=== PATIENT | female | born 1990 | race Caucasian/White ===

== ENCOUNTER 2018-01-07 14:40 | Emergency (ER) | payer OTHER ==
[~2018-01-07] VITALS: Ht 157.5 cm; Wt 90.7 kg
[~2018-01-07 14:40] MED LIST: HYDROXYZINE10 MG PO; PREDNISONE10 MG PO
[2018-01-07 14:57] VITALS: BP 122/83
== END 2018-01-07 15:30 | disposition admitted as inpatient to this hospital (09) ==
LOC: ERH 14:40
DX: E11.9 Type 2 diabetes mellitus without complications (principal)

== ENCOUNTER 2018-02-27 15:52 | Inpatient (IN) | payer OTHER ==
[~2018-02-27] VITALS: Ht 160 cm; Wt 88.6 kg
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
[2018-02-27 19:22] LABS: ABSOLUTE BASOPHIL COUNT 0.1 /CUMM (0.0-0.2); ABSOLUTE EOSINOPHIL COUNT 0.8 /CUMM (0.0-0.7); ABSOLUTE GRANULOCYTE CT 5.3 /CUMM (1.4-6.5); ABSOLUTE LYMPH COUNT 2.3 /CUMM (1.2-3.4); ABSOLUTE MONOCYTE COUNT 0.5 /CUMM (0.10-0.60); BASOPHIL % 0.6 % (0.0-2.0); EOSINOPHIL % 8.5 % (0-5); GRANULOCYTE % 59.2 % (42.2-75.2); HEMATOCRIT 45.4 % (37-47); MEAN CORPUSCULAR HGB 29.3 PG (27.0-31.0); MEAN CORPUSCULAR HGB CONC 33.5 G/DL (33.0-37.0); MEAN CORPUSCULAR VOLUME 87.3 FL (81.0-99.0); MEAN PLATELET VOLUME 9.7 FL (7.4-10.4); PLATELET COUNT 265 /CUMM (130-400); RBC DISTRIBUTION WIDTH 11.5 % (11.5-14.5); WHITE BLOOD CELL COUNT 8.9 /CUMM (4.8-10.8)
[2018-02-27] MEDS ORDERED: BENZTROPINE MESY1 M1 PO (21:31)
[2018-02-27] MEDS ORDERED: CLONAZEPAM1 M2 (21:31)
[2018-02-27] MEDS ORDERED: GABAPENTIN400 M2 PO (21:32)
[2018-02-27] MEDS ORDERED: SEROQUEL100 M1 PO (21:33)
[2018-02-27] MEDS ORDERED: CYMBALTA60 M1 (21:33)
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
[2018-02-28 14:52] VITALS: BP 111/60
[2018-02-28 16:24] VITALS: BP 107/71
[2018-02-28 16:25] VITALS: BP 107/71
[2018-02-28 16:31] VITALS: BP 108/72
[2018-02-28] MEDS ORDERED: METFORMIN HCL500 M3 PO (16:39)
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
[2018-02-28 19:46] VITALS: BP 124/60
[2018-02-28 20:45] VITALS: BP 124/60
[2018-03-01] VITALS (8 sets, daily range): BP systolic 104–134; BP diastolic 55–79
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
--- NOTE | 2018-03-01 15:04 | SOCIAL WORKER PROG NOTE PSYCH ---
Social Work Progress Note Progress Note I Sanya Soniatony met with Armida to complete her social history she was in bed but was cooperative. Her response did not align with the diagnostic assessment from crisis. She mentioned that she has a love for animal and a supportive family. When I met with the patient she was in bed tired and she reported that she did not sleep well last night. She denies feelings of depression and anxiety today, She also initially denied drinking but later in the afternoon admitted that she drank last night. DIscussed her feelings towards her mom but she denies making threat to harm her mother. Currently she does not have negative feelings toward her mom. She seen people discharge from the unit to today and desires to leave as well. I was able to have her sign releases for her mother and therapist Flaquita. I explained that she needs to be more open to discussing emotions and behaviors so that the clinical team can have a successful discharge plan. She challenged that by saying I am talking now and I said yes but you need some time to process what went on prior to admission. I informed her that I would call mom to set up a family meeting and I would let her know when one is scheduled. At first she was resistant to having a family meeting saying patients left today without family meetings I just let her know that this would aid in the discharge process and she agreed. I did reach out to her mother and she is checking with her job operating room coordinator to see if she can come in tomorrow before the psychiatrist leaves for a family meeting. I gave her mom Luz Elena Albarado's number as a call back number to see if tomorrow would work out to have family meeting.
--- NOTE | 2018-03-01 15:31 | SOCIAL WORKER PROG NOTE PSYCH ---
Social Work Progress Note Progress Note A family meeting is scheduled for 1:30 pm. I will met with the patient again tomorrow before the meeting to check in and let her know of the expectations for behavior during the meeting.
--- NOTE | 2018-03-01 19:00 | History & Physical ---
General Information and HPI MD Statement: I have seen and personally examined MOLLY SANCHES and documented this H&P. The patient is a 27 year old F who presented with a patient stated chief complaint of depression with suicidal ideation. Source of Information: patient Exam Limitations: no limitations History of Present Illness: 27-year-old female with past medical history significant for diabetes, depression who is admitted to [facility] with depression with suicidal ideation. Apparently patient had made some statements about suicidal ideation. Patient's family member was not feeling safe therefore she is admitted to [facility]. She does have a history of diabetes and she had high blood sugars this afternoon. She claims that she does take insulin, metformin and another medicine. She currently denies any aches, pains, chest pain, shortness of breath, nausea, vomiting, diarrhea, constipation, abdominal pain, urinary complaints. Allergies/Medications Allergies: Coded Allergies: nut - unspecified (Intermediate, RASH 02/28/18) haloperidol (From HALDOL) (PT STATES RASH AND DIFF BREATH 02/27/18) Home Med list Benztropine Mesylate 1 MG TABLET 1 MG PO DAILY ? (Reported) Clonazepam 1 MG TABLET 1 MG BID anxiety (Reported) Duloxetine HCl (Cymbalta) 60 MG CAPSULE. PT (Reported) Gabapentin 400 MG CAPSULE 2 CAP PO TID mental health (Reported) Hydroxyzine Hydrochloride (Hydroxyzine) 10 MG TAB 1 TAB PO TID PRN ITCHING Metformin HCl 500 MG TABLET 1 TAB PO 7:30 AM, & 4:30 PM DIABETES (Reported) Prednisone 10 MG TABLET 1 TAB PO DAILY DERMATITIS 4 TABS PO DAY 1 3 TABS PO DAY 2 2 TABS PO DAY 3 1 TA PO DAY 4 Quetiapine Fumarate (Seroquel) 100 MG TABLET 1 TAB PO AT BEDTIME mental health (Reported) Past History Travel History Traveled to [facility] past 21 day No Medical History Neurological: NONE EENT: NONE Cardiovascular: NONE Respiratory: NONE Gastrointestinal: NONE Hepatic: NONE Renal: NONE Musculoskeletal: NONE Psychiatric: NONE Endocrine: NONE, diabetes Blood Disorders: NONE Cancer(s): NONE Isolation History: Standard Surgical History Surgical History: non-contributory Past Family/Social History Family History Relations & Conditions if any FATHER Relation not specified for: FHx: diabetes mellitus Employment History Employment Unemployed Profession/Employer She was employed prior no further details Review of Systems Review of Systems Constitutional: Reports: see HPI. EENTM: Reports: see HPI. Cardiovascular: Reports: see HPI. Respiratory: Reports: see HPI. GI: Reports: see HPI. Musculoskeletal: Reports: see HPI. Neurological/Psychological: Reports: see HPI. Exam & Diagnostic Data Last 24 Hrs of Vital Signs/I&O Vital Signs Date Time Temp Pulse Resp B/P B/P Pulse O2 O2 Flow FiO2 Mean Ox Delivery Rate 03/01 1638 71 123/71 03/01 1201 86 129/78 03/01 0817 97.8 64 114/79 03/01 0816 97.8 64 114/79 03/01 0501 96.9 55 114/56 03/01 0006 97.3 58 104/55 02/28 2045 98.0 55 124/60 02/28 1946 98.0 55 124/60 Intake & Output 03/01 1600 03/01 0800 03/01 0000 Intake Total Output Total Balance Patient 195 lb Weight Physical Exam General Appearance Alert, Oriented X3, Cooperative Skin No Rashes HEENT PERRLA Neck Supple Cardiovascular Regular Rate, Normal S1, Normal S2 Lungs Clear to Auscultation Abdomen Normal Bowel Sounds, Soft, No Tenderness Neurological Cranial Nerves II through XII: Intact Last 24 Hrs of Labs/Conner: Laboratory Tests 02/27 1903 Chemistry Sodium (137 - 145 mmol/L) 143 Potassium (3.5 - 5.1 mmol/L) 4.4 Chloride (98 - 107 mmol/L) 104 Carbon Dioxide (22 - 30 mmol/L) 21 L Anion Gap (5 - 16) 18 H BUN (7 - 17 mg/dL) 9 Creatinine (0.5 - 1.0 mg/dL) 0.6 Estimated GFR (>60 ml/min) > 60 BUN/Creatinine Ratio (7 - 25 %) 15.0 Glucose (65 - 99 mg/dL) 123 H Hemoglobin A1c (4.2 - 5.8 %) 8.7 H Calcium (8.4 - 10.2 mg/dL) 10.7 H Total Bilirubin (0.2 - 1.3 mg/dL) 0.7 AST (14 - 36 U/L) 24 ALT (9 - 52 U/L) 41 Alkaline Phosphatase (<127 U/L) 99 Total Protein (6.3 - 8.2 g/dL) 7.9 Albumin (3.5 - 5.0 g/dL) 4.9 Globulin (1.9 - 4.2 gm/dL) 3.0 Albumin/Globulin Ratio (1.1 - 2.2 %) 1.6 Triglycerides (<150 mg/dL) 273 H Cholesterol (<200 MG/DL) 166 LDL Cholesterol, Calc (65 - 129 mg/dL) 78 HDL Cholesterol (40 - 60 mg/dL) 34 L Cholesterol/HDL Ratio (0.00 - 4.23 %) 5 H TSH &T3 &Free T4 Intrp (0.270 - 4.20 uIU/mL) 0.360 Hematology CBC w Diff NO MAN DIFF REQ WBC (4.8 - 10.8 /CUMM) 8.9 RBC (4.20 - 5.40 /CUMM) 5.20 Hgb (12.0 - 16.0 G/DL) 15.2 Hct (37 - 47 %) 45.4 MCV (81.0 - 99.0 FL) 87.3 MCH (27.0 - 31.0 PG) 29.3 MCHC (33.0 - 37.0 G/DL) 33.5 RDW (11.5 - 14.5 %) 11.5 Plt Count (130 - 400 /CUMM) 265 MPV (7.4 - 10.4 FL) 9.7 Gran % (42.2 - 75.2 %) 59.2 Lymphocytes % (20.5 - 51.1 %) 25.9 Monocytes % (1.7 - 9.3 %) 5.8 Eosinophils % (0 - 5 %) 8.5 H Basophils % (0.0 - 2.0 %) 0.6 Absolute Granulocytes (1.4 - 6.5 /CUMM) 5.3 Absolute Lymphocytes (1.2 - 3.4 /CUMM) 2.3 Absolute Monocytes (0.10 - 0.60 /CUMM) 0.5 Absolute Eosinophils (0.0 - 0.7 /CUMM) 0.8 Absolute Basophils (0.0 - 0.2 /CUMM) 0.1 Toxicology Serum Alcohol (<10 MG/DL) 64.0 02/27 1645 Toxicology Urine Opiates Screen (>2000 NG/ML) < 100 Methadone Screen (>300 NG/ML) 56 Barbiturate Screen (>200 NG/ML) < 60 Ur Phencyclidine Scrn (>25 NG/ML) < 6.00 Amphetamines Screen (>1000 NG/ML) < 100 U Benzodiazepines Scrn (>200 NG/ML) < 85 Urine Cocaine Screen (>300 NG/ML) < 50 Urine Cannabis Screen (>50 NG/ML) < 5.00 Urines Urine Color (YEL,AMB,STR) YEL Urine Clarity (CLEAR) CLEAR Urine pH (5.0 - 8.0) 6.0 Ur Specific [place] (1.001 - 1.035) 1.015 Urine Protein (NEG,<30 MG/DL) TRACE H Urine Ketones (NEG) TRACE H Urine Nitrite (NEG) NEG Urine Bilirubin (NEG) NEG Urine Urobilinogen (0.1 - 1.0 EU/dl) 0.2 Ur Leukocyte Esterase (NEG) NEG Ur Microscopic SEDIMENT EXAMINED Urine RBC (0 - 5 /HPF) RARE Urine WBC (0 - 2 /HPF) RARE Ur Epithelial Cells (NONE,FEW) MOD H Urine Bacteria (NEG/NONE) FEW H Urine Hemoglobin (NEG) NEG Urine Glucose (N MG/DL) 100 H Urine Test NEGATIVE Assessment/Plan Assessment: 27-year-old female with past medical history significant for depression and diabetes admitted to [facility] with suicidal ideation and depression. Blood sugars are not controlled. I will continue metformin and add sliding scale insulin. Continue Accu-Cheks. Psych management will be up to psychiatry. Hemoglobin A1c is not controlled. Patient does need diabetic counseling and nutrition consult. As Ranked By This Provider Problem List: 1. 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
[2018-03-02 08:20] VITALS: BP 117/70
[2018-03-02 08:27] VITALS: BP 117/70
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
--- NOTE | 2018-03-02 14:11 | SOCIAL WORKER PROG NOTE PSYCH ---
Social Work Progress Note Progress Note Doctor Mesa, Luz Elena Albarado, and Sanya Lino met with Armida for a phone conference with her mother at 1:30 pm today. The patient was informed by her psychiatrist (doctor Mesa) that she would be released into police custody. Luz Elena Albarado let her know the charges she has which include assaulting an office, threatening an officer and threatening to harm her mother. After care was discussed with Armida and she does not want to stop taking Clonazepam so she is hesitant towards IOP. Armida did express intentions to continue seeing her therapist Flaquita from [facility], a substance abuse counselor and her CYLINDER PRESS FEEDER. Mom said she does not want her home unless she attends IOP for three days a week. Armida then agreed to IOP. The mom expressed concerns about Armida's resistance towards treatment. Armida walked out of the phone conference due to not feeling great. She was disappointed and pissed that she couldn't leave today but rather stay here than be in group home over the weekend. Luz Elena Albarado was later informed after the meeting that Armida is not currently in police custody. I also called Flaquita and left a message for her in regards to taking Armida back upon discharge. I left Luz Elena Albarado's number as a call back number .
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
[2018-03-02 20:09] VITALS: BP 125/76
[2018-03-03 09:23] VITALS: BP 107/59
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
[2018-03-03 19:27] VITALS: BP 106/59
[2018-03-04 09:08] VITALS: BP 96/56
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
[2018-03-05 08:06] VITALS: BP 132/60; BP 90/63
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
--- NOTE | 2018-03-05 13:08 | SOCIAL WORKER PROG NOTE PSYCH ---
Social Work Progress Note Faxed Referral(s) Referred To: [facility] Transition of Care Documents sent: Health Summary [facility] #: [phone] Faxed by: Luz Elena Albarado Date faxed: 03/05/18 Time Faxed: [phone]
--- NOTE | 2018-03-05 15:52 | SOCIAL WORKER PROG NOTE PSYCH ---
Social Work Progress Note Progress Note The services requested require additional review. You will be contacted regarding the status of this request if further information is needed. An authorization decision will be made within the required timeframes and details of that decision may be found under the member's authorization history. Member Name Member ID Member Subscriber Name Subscriber ID MOLLY SANCHES [id number] 1990 MOLLY SANCHES [id number] Pended Authorization # Client Authorization # Type of Request [id number] CONCURRENT Date of Admission/ Start of Services Requested From Submission Date 02/28/2018 03/05/2018 03/05/2018 Level of Service Type of Service Level of Care Type of Care INPATIENT/[facility] Mental Health Inpatient Inpatient Hospital - Inpatient Hospital Reason Code P76
== END 2018-03-05 09:39 | DRG 753 ==
LOC: ERH 15:52 → CP SOUTH 02-28 11:53 → ERHI 02-28 11:53 → CP SOUTH 02-28 16:11
PROVIDERS: Physician Assistant Medical
DX: F31.9 Bipolar disorder, unspecified (principal); F11.90 Opioid use, unspecified, uncomplicated
CPT/HCPCS: 80307; 81001; 81025; 96372; 99291; G0480; J1200; J1630; J1815; J3490

== ENCOUNTER 2018-03-26 21:53 | Inpatient (IN) | payer OTHER ==
[~2018-03-26] VITALS: Ht 157.5 cm; Wt 86.2 kg
[~2018-03-26 21:53] MED LIST changes: +BENZTROPINE MESY1 M1 PO; +CLONAZEPAM1 M2; +CYMBALTA60 M1; +GABAPENTIN400 M2 PO; +METFORMIN HCL500 M3 PO; +SEROQUEL100 M1 PO
[2018-03-26] MEDS ORDERED: LITHIUM CARBON300 M4 PO (23:06)
[2018-03-26 23:08] LABS: ABSOLUTE BASOPHIL COUNT 0 /CUMM (0.0-0.2); ABSOLUTE EOSINOPHIL COUNT 0.1 /CUMM (0.0-0.7); ABSOLUTE GRANULOCYTE CT 4.4 /CUMM (1.4-6.5); ABSOLUTE LYMPH COUNT 1.7 /CUMM (1.2-3.4); ABSOLUTE MONOCYTE COUNT 0.4 /CUMM (0.10-0.60); BASOPHIL % 0.5 % (0.0-2.0); EOSINOPHIL % 1.8 % (0-5); GRANULOCYTE % 66.3 % (42.2-75.2); HEMATOCRIT 41.4 % (37-47); MEAN CORPUSCULAR HGB CONC 33.9 G/DL (33.0-37.0); MEAN CORPUSCULAR VOLUME 85.6 FL (81.0-99.0); PLATELET COUNT 206 /CUMM (130-400); RBC DISTRIBUTION WIDTH 11.7 % (11.5-14.5); RED BLOOD CELL CT 4.84 /CUMM (4.20-5.40); WHITE BLOOD CELL COUNT 6.7 /CUMM (4.8-10.8)
--- NOTE | 2018-03-26 23:41 | ED GENERAL ADULT ---
See Addendum History of Present Illness General Chief Complaint: Psychiatric Related Complaint Stated Complaint: ATTEMPTED HANGING Source: patient Exam Limitations: no limitations Vital Signs & Intake/Output Vital Signs & Intake/Output Vital Signs Date Time Temp Pulse Resp B/P B/P Pulse O2 O2 Flow FiO2 Mean Ox Delivery Rate 03/27 0238 98.0 88 20 128/87 100 Room Air 03/27 0004 98.2 89 20 122/72 99 Room Air 03/26 2157 98.3 102 18 126/68 98 ED Intake and Output 03/27 0000 03/26 1200 Intake Total 0 Output Total Balance 0 Intake, Oral 0 Patient 190 lb Weight Weight Reported by Patient Measurement Method Allergies Coded Allergies: nut - unspecified (Intermediate, RASH 02/28/18) haloperidol (From HALDOL) (PT STATES RASH AND DIFF BREATH 02/27/18) Reconcile Medications Clonazepam 1 MG TABLET 1 MG BID anxiety (Reported) Duloxetine HCl (Cymbalta) 60 MG CAPSULE. PT (Reported) Gabapentin 400 MG CAPSULE 2 CAP PO TID mental health (Reported) [place] Carbonate 300 MG CAPSULE 1 CAP PO BID MENTAL HEALTH (Reported) Metformin HCl 500 MG TABLET 1 TAB PO 7:30 AM, & 4:30 PM DIABETES (Reported) Quetiapine Fumarate (Seroquel) 100 MG TABLET 1 TAB PO AT BEDTIME mental health (Reported) Triage Note: BROUGHT IN BY AMBULANCE ON PEC ATTEMPT TO HAND SELF WITH ROPE. MINOR ABRASIONS TO L WRIST, "THE KNIFE WASN'T DEEP ENOUGH." ON PEC. Triage Nurses Notes Reviewed? 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 Pt attempted to hang herself with a rope. Tied the rope around her neck, but did not attach it to anything. Her mother called 911 in response to the event. Denies HI. Endorses drinking 5 nips today. No drug use. Denies pain. (Negin Powell) Past History Travel History Traveled to [place] past 21 day No Medical History Any Pertinent Medical History? see below for history Neurological: NONE EENT: NONE Cardiovascular: NONE Respiratory: NONE Gastrointestinal: NONE Hepatic: NONE Renal: NONE Musculoskeletal: NONE Psychiatric: NONE Endocrine: NONE, diabetes Blood Disorders: NONE Cancer(s): NONE Isolation History: Standard Surgical History Surgical History: non-contributory Psychosocial History Who do you live with Mother What is your primary language Moroccan Tobacco Use: Refused to answer Family History Family History, If Any: FATHER Relation not specified for: FHx: diabetes mellitus Hx Contributory? No (Negin Powell) Review of Systems Review of Systems Constitutional: Reports: no symptoms. EENTM: Reports: no symptoms. Respiratory: Reports: no symptoms. Cardiovascular: Reports: no symptoms. GI: Reports: no symptoms. Genitourinary: Reports: no symptoms. Musculoskeletal: Reports: no symptoms. Skin: Reports: no symptoms. Neurological/Psychological: Reports: see HPI. Hematologic/Endocrine: Reports: no symptoms. Immunologic/Allergic: Reports: no symptoms. All Other Systems: Reviewed and Negative (Negin Powell) Physical Exam Physical Exam General Appearance: well developed/nourished, no apparent distress, alert, awake Comments: Gen.: Well-nourished, well-developed, no acute distress. Head: Normocephalic, atraumatic. Eyes: Normal inspection bilaterally Ears: Normal inspection bilaterally Nose: Normal inspection Neck: Normal inspection, no ecchymosis or abrasions,no signs of strangulation Lungs: clear to auscultation bilaterally, normnal breath sounds Heart: regular rate and rhythm Abdomen: soft and non-tender Extremities: Normal inspection Neurologic: alert and oriented x3, steady gait Skin: warm and dry Psychiatric: Normal mood and affect, no apparent delusions or hallucinations, behavior appropriate Core Measures ACS in differential dx? No CVA/TIA Diagnosis: No Sepsis Present: No Sepsis Focused Exam Completed? No (Negin Powell) Progress Differential Diagnoses I considered the following diagnoses in my evaluation of the patient: [suicidal ideation vs ETOH intoxication vs strangulation] Plan of Care: Orders Procedure Date/time Status Regular Diet 03/27 B Active FingerStick- Glucose 03/274 Active Add-on Test (ER Only) 03/26 2327 Active LITHIUM 03/26 2300 Complete Continuous Observation Monitor 03/26 2204 Active URINE DRUGS OF ABUSE 03/26 2204 Complete URINE 03/26 2204 Complete ETHANOL 03/26 2204 Complete COMPREHENSIVE METABOLIC PANEL 03/26 2204 Complete CBC WITHOUT DIFFERENTIAL 03/26 2204 Complete ED CRISIS PSYCH CONSULT 03/26 2204 Active Current Medications Sig/Jorge Alberto Start time Last Medication Dose Stop Time Status Admin Duloxetine HCl 60 MG DAILY 03/27 09 UNVr (Cymbalta) Gabapentin 800 MG TID 03/27 900 UNVr (Neurontin) [place] Carbonate 300 MG 0800,03/27 08 UNVr ([place] Carbonate) Metformin HCl 500 MG 0800,1700 03/27 08 UNVr (Glucophage) Insulin Human Regular 4 UNITS ONCE ONE 03/27 010 UNVr 03/27 (NovoLIN R) 03/27 010 0149 Sodium Chloride 1,000 ML BOLUS ONE 03/27 010 UNVr 03/27 (Normal Saline 0.9%) 03/27 015 0241 Sodium Chloride 1,000 ML BOLUS ONE 03/27 010 UNVr 03/27 (Normal Saline 0.9%) 03/27 015 0147 Clonazepam 2 MG ONCE ONE 03/26 2345 UNVr 03/27 (Klonopin 1MG Tab) 03/26 2346 0002 Quetiapine Fumarate 100 MG QPM 03/26 2330 UNVr 03/26 (Seroquel) 2354 Laboratory Tests 03/26/18 2300: Anion Gap 11, Estimated GFR > 60, BUN/Creatinine Ratio 4.3 L, Glucose 413 H, Calcium 9.3, Total Bilirubin 0.9, AST 36, ALT 44, Alkaline Phosphatase 100, Total Protein 6.9, Albumin 4.0, Globulin 2.9, Albumin/Globulin Ratio 1.4, CBC w Diff NO MAN DIFF REQ, RBC 4.84, MCV 85.6, MCH 29.0, MCHC 33.9, RDW 11.7, MPV 9.0 , Gran % 66.3, Lymphocytes % 25.2, Monocytes % 6.2, Eosinophils % 1.8, Basophils % 0.5, Absolute Granulocytes 4.4, Absolute Lymphocytes 1.7, Absolute Monocytes 0.4, Absolute Eosinophils 0.1, Absolute Basophils 0, [place] 0.6, Serum Alcohol 79.0 03/26/184: Urine Opiates Screen < 100, Methadone Screen < 40, Barbiturate Screen < 60, Ur Phencyclidine Scrn < 6.00, Amphetamines Screen < 100, U Benzodiazepines Scrn < 85, Urine Cocaine Screen < 50, Urine Cannabis Screen < 5.00, Urine Test NEGATIVE Labs show serum thanol level 79 and hyperglycemia to 413. Ordered for IV fluids and subq insulin. Will recheck. Pt signed out to overnight attending with crisis eval pending. Initial ED EKG: none (Negin Powell) Departure Departure Disposition: STILL A PATIENT Condition: Stable Clinical Impression Primary Impression: Suicidal ideation Secondary Impressions: Alcohol intoxication, Suicide attempt Referrals: Patient Has No Primary Care Dr (PCP/Family) Departure Forms: Customer Survey General Discharge Information (Negin Powell) PA/POLLS OR SURVEYS INTERVIEWER Co-Sign Statement Statement: ED Attending supervision documentation- [] I saw and evaluated the patient. I have also reviewed all the pertinent lab results and diagnostic results. I agree with the findings and the plan of care as documented in the PA's/POLLS OR SURVEYS INTERVIEWER's documentation. [x] I have reviewed the ED Record and agree with the PA's/POLLS OR SURVEYS INTERVIEWER's documentation. [] Additions or exceptions (if any) to the PAs/POLLS OR SURVEYS INTERVIEWER's note and plan are summarized below: [] (Patrick Gutierrez DO) Critical Care Note Critical Care Note Critical Care Time: non-applicable (Negin Powell)
[2018-03-26 23:42] LABS: LITHIUM 0.6 mmol/L (0.6-1.2)
--- NOTE | 2018-03-27 09:56 | ED PSYCH CRISIS CONSULTATION ---
See Addendum Crisis Consult Basic Assessment Date of Consult: 03/27/18 Responsible Person/Accompanied By: self Insurance Authorization: Insurance #1: Insurance name: JESSY SAMUEL Phone number: Policy number: [id number] Group number: Authorization number: ED Provider: Patient's ED Provider: Negin Powell Primary Care Physician: Patient's PCP: Patient Has No Primary Care Dr PCP's Phone Number: Current Psychiatrist: Viridiana Darling Chief Complaint: Psychiatric Related Complaint Patient's Quote: "Yes" In response to question- where you trying to kill yourself? Present Illness: Pt is a 27 year old female BIBA last night on a PEER after mother called 911 when mother found pt in the garage with a rope around her neck and made suicidal statements to her mother. Crisis spoke to mother, Raymundo Prasad ([phone]) this morning. Mother states this is the first time the patient has done anything this significant- making a noose and putting it around her neck. Mom states that since pt's last discharge, she been depressed and getting worse. Mom states that over the last several days pt has been making suicidal statements such as- "I have a plan"; "I 'll do it"; "I'll tie a rope around my neck in the garage", and "I have the beam picked out". Mom states yesterday, pt stormed out of the house while mom was getting her hair done by a friend. She believes the pt went out drinking as mom states she was acting as though he had some alcohol in her system. Of note, BAL was 79 upon arrival to the ED. Mom states that pt came back home, stated she was tired of struggling and left the house again. Mom states she was nervous and went out after her which is when she found the patient with the rope tied around her neck in the garage. Additionally mom states that pt is supposed to go to an IOP intake tomorrow. Mom states pt has been seeing her therapist and prescriber. Pt has recently started [place] (level is 0.6 in ED). She is also taking Seroquel, Neurontin and Klonopin. Pt believes the Neurontin and Klonopin are the most helpful while mom believes the pt was at her best while she was prescribed Risperdal. Mom states when she was on Risperdal she was functiong well, was more sociable and had a job. Today patient presents as lethargic with a flat affect. She is soft spoken and somewhat guarded. She responsed to yes/no questions but had difficulty responding to open ended yesterdays. Pt does confirm that yesterday was a suicide attempt as she intended to . She continues to want to be today. Pt has a history of HI towards her mother but denies HI today. She denies AH/VH. She reports she drank 5 nips yesterday and that her last use of cocaine was before her last hospitalization (02/2018). UDS was negative in ED. Patient's Address: [address] [place] [address] Other Phone Number: Who Do You Live With? Mother Family/Informants Interviewed: Spoke with mother, Raymundo- see present illness section Allergies - Coded Allergies: nut - unspecified (Intermediate, RASH 02/28/18) haloperidol (From HALDOL) (PT STATES RASH AND DIFF BREATH 02/27/18) Current Medications - Scheduled Medications Clonazepam 1 MG TABLET 1 MG BID anxiety (Reported) Entered as Reported by Vidhi Salmon on 02/27/182130 Last Taken: 03/26/18 Gabapentin 400 MG CAPSULE 2 CAP PO TID mental health (Reported) Entered as Reported by Vidhi Salmon on 02/27/182131 Last Taken: 03/26/18 [place] Carbonate 300 MG CAPSULE 1 CAP PO BID MENTAL HEALTH (Reported) Entered as Reported by Roxana Carlos on 03/26/182305 Metformin HCl 500 MG TABLET 1 TAB PO 7:30 AM, & 4:30 PM DIABETES (Reported) Entered as Reported by Bigg Hatfield on 02/28/18 1639 Last Taken: 03/26/18 Quetiapine Fumarate (Seroquel) 100 MG TABLET 1 TAB PO AT BEDTIME mental health (Reported) Entered as Reported by Vidhi Salmon on 02/27/182132 Last Taken: 03/25/18 Miscellaneous Medications Duloxetine HCl (Cymbalta) 60 MG CAPSULE. PT (Reported) Entered as Reported by Vidhi Salmon on 02/27/182132 Last Taken: 03/26/18 Laboratory Results: Laboratory Tests 03/26/18 2300: Anion Gap 11, Estimated GFR > 60, BUN/Creatinine Ratio 4.3 L, Glucose 413 H, Calcium 9.3, Total Bilirubin 0.9, AST 36, ALT 44, Alkaline Phosphatase 100, Total Protein 6.9, Albumin 4.0, Globulin 2.9, Albumin/Globulin Ratio 1.4, CBC w Diff NO MAN DIFF REQ, RBC 4.84, MCV 85.6, MCH 29.0, MCHC 33.9, RDW 11.7, MPV 9.0 , Gran % 66.3, Lymphocytes % 25.2, Monocytes % 6.2, Eosinophils % 1.8, Basophils % 0.5, Absolute Granulocytes 4.4, Absolute Lymphocytes 1.7, Absolute Monocytes 0.4, Absolute Eosinophils 0.1, Absolute Basophils 0, [place] 0.6, Serum Alcohol 79.0 03/26/184: Urine Opiates Screen < 100, Methadone Screen < 40, Barbiturate Screen < 60, Ur Phencyclidine Scrn < 6.00, Amphetamines Screen < 100, U Benzodiazepines Scrn < 85, Urine Cocaine Screen < 50, Urine Cannabis Screen < 5.00, Urine Test NEGATIVE Past History Past Medical History Neurological: NONE EENT: NONE Cardiovascular: NONE Respiratory: NONE Gastrointestinal: NONE Hepatic: NONE Renal: NONE Musculoskeletal: NONE Psychiatric: alcohol dependence, anxiety, depression Endocrine: diabetes Blood Disorders: NONE Cancer(s): NONE Past Surgical History Surgical History: non-contributory Psychosocial History Strengths/Capabilities: supportive mother complaint with medications Physical Limitations (Interventions): N/A Psychiatric Treatment History Psych Treatment Psychiatric Treatment Yes Inpatient Treatment Yes Outpatient Treatment Yes Location of Treatment [facility]- last IP 02/2018; individual Reason for Treatment anxiety depression Dates of Treatment IP- [facility] (02/21 & ), [facility] OP Response to Treatment pt has been decompensating for 3 weeks (1 week post discharge from [facility]) Diagnosis by History: Unspecified Depressive Disorder F32.9 Moderate Opiod Use Disorder F11.20 Mother reports- Borderline Personality D/O Substance Use/Abuse History Drug Use/Abuse 1 Substances Used/Abused Yes Substance Used/Abused Alcohol Last Used 03/26/18 How much used/taken 5 nips How often "first time in a while" Route of use oral Drug Use/Abuse 2 Substances Used/Abused Yes Substance Used/Abused Cocaine Last Used before last hospitalization which was 02/2018 Substance Abuse Treatment Substance Abuse Treatment Past Substance Abuse [place] No Current Mental Status Mental Status Orientation: Person, Place, Situation Affect: Flat Speech: Soft Neuro-vegetative: Appetite Decreased, Sleep Disturbance Appearance Appearance- Dress/Hygiene: Pt presents in hospital scrubs. She has a tattoo on right foot. Hair is unkempt in a messy pony tail. Hygiene appears adequate. Behaviors Thought Process: Logical/Rational Thought Content: WNL Memory: WNL Insight: Fair SI/HI Risk Assessment Past Suicidal Ideation/Attempts Yes Current Suicidal Ideation/Att Yes Past Homicidal Ideation/Att: Yes Current Homicidal Ideation/Attempts No Degree of Intent: Made Preparations, Plan Danger To: Self Gravely Disabled: Lack of Insight, Poor Impulse Control, Poor Judgment Risk Factors: history of suicide atmpts, SA/MH hospitalized, substance abuse, poor impulse control, limited support Lethality Ratin PTSD Checklist PTSD Done? patient declined ED Management Sitter: Yes Restraints: No DSM5/PS Stressors/Medical Prob Diagnosis' (DSM 5, Stressors, Medical): F33.2 Major Depressive Disorder, Recurrent, Severe R/O Bipolar Disorder F10.20 [place] Use Disorder, Moderate F14.10 Stimulant Use Disorder Current GAF: 18 Departure Disposition Psych Medical Clearance Date: 03/27/18 Medically Cleared at: 0830 Time Started: 0830 Time Ended: 0850 Psychiatrist Consulted: Dr. Merly Guardado Date Disposition Established: 03/27/18 Time Disposition Established: 850 Plan for Disposition - Modality: Inpatient Psychiatry Facility: [facility] Rationale for Disposition: Pt requires acute Referrals Patient Has No Primary Care Dr (PCP/Family)
--- NOTE | 2018-03-27 11:38 | IP CRISIS DIAG ASSESS PSYCH ---
Diagnostic Assessment Basic Assessment Insurance Authorization: Insurance #1: Insurance name: JESSY Romero [place] Phone number: Policy number: [id number] Group number: Authorization number: Pt was authorized for 3 units from 03/27/18-03/29/18. Auth #[id number] Primary Care Physician: Patient's PCP: Patient Has No Primary Care Dr PCP's Phone Number: Patient's Quote: "Yes" In response to question- where you trying to kill yourself? Present Illness: Pt is a 27 year old female BIBA last night on a PEER after mother called 911 when mother found pt in the garage with a rope around her neck and made suicidal statements to her mother. Crisis spoke to mother, Raymundo Prasad ([phone]) this morning. Mother states this is the first time the patient has done anything this significant- making a noose and putting it around her neck. Mom states that since pt's last discharge, she been depressed and getting worse. Mom states that over the last several days pt has been making suicidal statements such as- "I have a plan"; "I 'll do it"; "I'll tie a rope around my neck in the garage", and "I have the beam picked out". Mom states yesterday, pt stormed out of the house while mom was getting her hair done by a friend. She believes the pt went out drinking as mom states she was acting as though he had some alcohol in her system. Of note, BAL was 79 upon arrival to the ED. Mom states that pt came back home, stated she was tired of struggling and left the house again. Mom states she was nervous and went out after her which is when she found the patient with the rope tied around her neck in the garage. Additionally mom states that pt is supposed to go to an IOP intake tomorrow. Mom states pt has been seeing her therapist and prescriber. Pt has recently started [place] (level is 0.6 in ED). She is also taking Seroquel, Neurontin and Klonopin. Pt believes the Neurontin and Klonopin are the most helpful while mom believes the pt was at her best while she was prescribed Risperdal. Mom states when she was on Risperdal she was functiong well, was more sociable and had a job. Today patient presents as lethargic with a flat affect. She is soft spoken and somewhat guarded. She responsed to yes/no questions but had difficulty responding to open ended yesterdays. Pt does confirm that yesterday was a suicide attempt as she intended to . She continues to want to be today. Pt has a history of HI towards her mother but denies HI today. She denies AH/VH. She reports she drank 5 nips yesterday and that her last use of cocaine was before her last hospitalization (02/2018). UDS was negative in ED. Patient's Address: [address] [place] [address] Other Phone Number: Who Do You Live With? Mother Feel Safe Where You Live? Yes Marital Status: single Do You Have Children? No Primary Language? Persian Language(s) Spoken At Home: Persian Family/Informants Interviewed: Spoke with motherRaymundo- see present illness section Allergies - Coded Allergies: nut - unspecified (Intermediate, RASH 02/28/18) haloperidol (From HALDOL) (PT STATES RASH AND DIFF BREATH 02/27/18) Current Medications - Scheduled Medications Clonazepam 1 MG TABLET 1 MG BID anxiety (Reported) Entered as Reported by Vidhi Salmon on 02/27/182130 Last Taken: 03/26/18 Gabapentin 400 MG CAPSULE 2 CAP PO TID mental health (Reported) Entered as Reported by Vidhi Salmon on 02/27/182131 Last Taken: 03/26/18 [place] Carbonate 300 MG CAPSULE 1 CAP PO BID MENTAL HEALTH (Reported) Entered as Reported by Roxana Carlos on 03/26/182305 Metformin HCl 500 MG TABLET 1 TAB PO 7:30 AM, & 4:30 PM DIABETES (Reported) Entered as Reported by Bigg Hatfield on 02/28/18 1639 Last Taken: 03/26/18 Quetiapine Fumarate (Seroquel) 100 MG TABLET 1 TAB PO AT BEDTIME mental health (Reported) Entered as Reported by Vidhi Salmon on 02/27/182132 Last Taken: 03/25/18 Miscellaneous Medications Duloxetine HCl (Cymbalta) 60 MG CAPSULE.DR FLEMING (Reported) Entered as Reported by Vidhi Salmon on 02/27/182132 Last Taken: 03/26/18 Consequences of Psych Med Use: Mom reports patient was most successful on Risperdal- social, happier and had a job Pt was d/c Risperdal- reasons unknown- possibly related to 100 pound weight gain over a period of time. Pt was recently started on [place]. Lab Results: Laboratory Tests 03/26/18 2300: Anion Gap 11, Estimated GFR > 60, BUN/Creatinine Ratio 4.3 L, Glucose 413 H, Calcium 9.3, Total Bilirubin 0.9, AST 36, ALT 44, Alkaline Phosphatase 100, Total Protein 6.9, Albumin 4.0, Globulin 2.9, Albumin/Globulin Ratio 1.4, CBC w Diff NO MAN DIFF REQ, RBC 4.84, MCV 85.6, MCH 29.0, MCHC 33.9, RDW 11.7, MPV 9.0 , Gran % 66.3, Lymphocytes % 25.2, Monocytes % 6.2, Eosinophils % 1.8, Basophils % 0.5, Absolute Granulocytes 4.4, Absolute Lymphocytes 1.7, Absolute Monocytes 0.4, Absolute Eosinophils 0.1, Absolute Basophils 0, [place] 0.6, Serum Alcohol 79.0 03/26/184: Urine Opiates Screen < 100, Methadone Screen < 40, Barbiturate Screen < 60, Ur Phencyclidine Scrn < 6.00, Amphetamines Screen < 100, U Benzodiazepines Scrn < 85, Urine Cocaine Screen < 50, Urine Cannabis Screen < 5.00, Urine Test NEGATIVE Toxicology Screen Completed? Yes Results: negative Symptoms of Use: Pt drinks alcohol (last use yesterday- 5 nips) Pt has a hx of cocaine use- last use prior to previous [facility] in 02/2018. Past History Past Medical History Medical History: Diabetes Past Surgical History Surgical History unobtainable Abuse/Trauma History Trauma History/Current Trauma: Denies Legal History Current Legal Status: family relations court Have you ever been arrested? Yes Number of Arrests: [address] Dates: pt has court on 05/17/18- charges threatening, interferring w/ officer and assult of police office (felony). Psychosocial History Strengths/Capabilities: supportive mother complaint with medications Physical Limitations (Interventions): N/A Psychiatric Treatment History Psych Treatment Psychiatric Treatment Yes Inpatient Treatment Yes Outpatient Treatment Yes Location of Treatment [facility]- last IP 02/2018; individual Reason for Treatment anxiety depression Dates of Treatment IP- [facility] (02[facility]21 [facility] ), [facility], [facility] OP Response to Treatment pt has been decompensating for 3 weeks (1 week post discharge from [facility]) Diagnosis by History: Unspecified Depressive Disorder F32.9 Moderate Opiod Use Disorder F11.20 Mother reports- Borderline Personality D/O Risk Factors: history of suicide atmpts, SA/MH hospitalized, substance abuse, poor impulse control, limited support Substance Use/Abuse History Drug Use/Abuse minimum 12mo Hx 1 Substances Used/Abused Yes Substance Used/Abused Cocaine Last Used before last hospitalization which was 02/2018 How much used/taken 5 nips How often "first time in a while" Route of use oral Drug Use/Abuse minimum 12mo Hx 2 Substances Used/Abused Yes Substance Used/Abused Alcohol Last Used 03/26/18 How much used/taken 5 nips How often "first time in a while" Route of use oral Substance Abuse Treatment Substance Abuse Treatment Past Substance Abuse [place] No Sexual History Sexual Concerns: none Education History Highest Level of Education: high school/GED Current Mental Status Mental Status Orientation: Person, Place, Situation Affect: Flat Speech: Soft Neuro-vegetative: Appetite Decreased, Sleep Disturbance Appearance Appearance- Dress/Hygiene: Pt presents in hospital scrubs. She has a tattoo on right foot. Hair is unkempt in a messy pony tail. Hygiene appears adequate. Behaviors Thought Process: Logical/Rational Thought Content: WNL Memory: WNL Insight: Fair SI/HI Risk Assessment - Minimum 6mo History- Past Suicidal Ideation/Attempts Yes Current Suicidal Ideation/Att Yes Past Homicidal Ideation/Att: Yes Current Homicidal Ideation/Attempts No Degree of Intent: Made Preparations, Plan Danger To: Self Gravely Disabled: Lack of Insight, Poor Impulse Control, Poor Judgment Risk Factors: history of suicide atmpts, SA/MH hospitalized, substance abuse, poor impulse control, limited support Lethality Ratin Needs/Init [place] Plan/Goals: Medication Evaluation Psychiatric Evaluation Comphrensive Psychosocial Evaluation Individual Therapy Group Therapy Family Therapy AUDIT-C Questionnaire: AUDIT-C Questionnaire: Response Value ETOH use in the past year Monthly or less 1 # drinks typical/day 5 or 6 2 6 or > drinks per occasion Less than monthly 1 Total 4 DSM5/PS Stressors/Medical Prob Diagnosis' (DSM 5, Stressors, Medical): F33.2 Major Depressive Disorder, Recurrent, Severe R/O Bipolar Disorder F10.20 [place] Use Disorder, Moderate F14.10 Stimulant Use Disorder Current GAF: 18
[2018-03-27] MEDS ORDERED: LEVEMIR100 UNIT/1 SC (12:06)
[2018-03-27 13:15] VITALS: BP 124/66
[2018-03-27 19:50] VITALS: BP 128/64
[2018-03-28 08:21] VITALS: BP 104/62
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
--- NOTE | 2018-03-28 13:43 | PN- Gen Med ---
Assessment/Plan Medical Assessment: Suicidal ideation with attempt- management per [facility] DM- on insulin . started her back on her home insulin . f/u on blood sugars. BS are better controlled now. Depression/ anxiety- management as per psych Problem List: 1. Depression with suicidal ideation 2. Diabetes 1.5, managed as type 2 3. Suicidal ideation 4. Suicide attempt 5. Alcohol intoxication Subjective Subjective: Pt not very cooperative and not willing to answer all the questions. Visited her yesterday and she refused to be seen yesterday. Review of Systems Constitutional: Denies: fever. Cardiovascular: Denies: chest pain, palpitations. Respiratory: Denies: cough, short of breath. Gastrointestinal: Denies: abdominal pain. Musculoskeletal: Denies: back pain. Neurological/Psychological: Reports: anxiety, depressed. Objective Last 24 Hrs of Vital Signs/I&O Vital Signs Date Time Temp Pulse Resp B/P B/P Pulse O2 O2 Flow FiO2 Mean Ox Delivery Rate 03/28 0821 97.5 86 104/62 03/27 1950 87 128/64 Physical Exam General Appearance: Alert, No Acute Distress Cardiovascular: Regular Rate, Normal S1, Normal S2 Lungs: Clear to Auscultation, Normal Air Movement Neurological: Normal Speech
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
--- NOTE | 2018-03-28 15:05 | SOCIAL WORKER PROG NOTE PSYCH ---
Social Work Progress Note Progress Note Pt had a disruption after meeting with Dr. Mesa, and shit down after that. She has a hx of aggression and not communicating verbally her needs. She can be demanding and unpredictable. She refused to meet, choosing to lay in her bed.
[2018-03-28 19:41] VITALS: BP 150/74
[2018-03-29 08:02] VITALS: BP 124/73
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
--- NOTE | 2018-03-29 10:35 | SOCIAL WORKER PROG NOTE PSYCH ---
Social Work Progress Note Progress Note Pt is refusing treatment at this time, will not communicate with staff or director social welfare, is not attending groups, offers "I signed myself in here I will sign myself out". She will ot sign a release for her Mom today. As we explore discharge options she wants to go to [facility] in [place] and will need an intake for next week. It does not appear she is at her baseline and will need to become more willing to engage in milieu to address her mental health issues. WIll continue to reach out.
[2018-03-29 19:48] VITALS: BP 134/84
[2018-03-30 08:56] VITALS: BP 117/65
--- NOTE | 2018-03-30 11:26 | SOCIAL WORKER PROG NOTE PSYCH ---
Social Work Progress Note Progress Note MOLLY GÓMEZANJALI [id number] 1990 Pended Authorization #[id number] Client Authorization #[id number] Type of Request CONCURRENT Date of Admission/ Start of Services 03/27/2018 Requested From 03/30/2018 Submission Date 03/30/2018 CONCURRENT Date of Admission/ Start of Services Requested From Submission Date 03/27/2018 03/30/2018 03/30/2018 Level of Service Type of Service Level of Care Type of Care INPATIENT/[facility]PATIENT [facility]OSPITAL Reason Code P76 Provider Name & Address Provider ID Provider Alternate ID NPI # for Authorization BOB BIGGS [address] [place] [id number]
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
--- NOTE | 2018-03-30 12:29 | SOCIAL WORKER PROG NOTE PSYCH ---
Social Work Progress Note Progress Note Pt refused to sign releases for [facility] and her mother Raymundo Prasad . Pt was asked to sign other releases for this clinician to contact [facility] and pt said "I will contact ALYSSAJosefina myself and set up an appointment". Pt did not want to engaged in conversation, said she was feeling tired and wanted to lay in bed. Pt also, said that her mother Raymundo is angry and worried that she is being dischargd too early from [facility]. However, pt is not participating in groups and not will to engage in discharge planning for a safe discharge that includes follow-up treatment.
[2018-03-30 20:03] VITALS: BP 137/73
--- NOTE | 2018-03-31 08:24 | CP SOUTH PROGRESS NOTE PSYCH ---
Psych (Inpt) Progress Note Progress Note Vital Signs Date Time Temp Pulse Resp B/P B/P Pulse O2 O2 Flow FiO2 03/30 2003 99.6 102 137/73 Mental Status: The patient was in bed, "I don't eat breakfast", disinterested in conversation She was alert and oriented. She said she's been sleeping well, affect is irritable but not hostile or rude today. She says her mood is is not depressed and denied thoughts of suicide. She denied thoughts of homicide, she denied hallucinations. She denied feeling paranoid, there were no delusions during the interview. No difficulties with thought organization, poor insight, poor judgment. Assessment Update: Armida is a 27-year-old single white female who presented to the emergency room after her mother reportedly found her in the garage trying to fashion a noose to hang self. The patient has extensive history of substance abuse and assaultive behaviors. However, this time around, her urine was clean. 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
[2018-03-31 11:46] VITALS: BP 87/67
[2018-03-31 20:08] VITALS: BP 136/83
--- NOTE | 2018-04-01 08:32 | CP SOUTH PROGRESS NOTE PSYCH ---
Psych (Inpt) Progress Note Progress Note Vital Signs Date Time Temp Pulse B/P B/P Pulse O2 O2 Flow FiO2 03/31 2008 99.3 88 136/83 Mental Status: The patient was in bed resting not sleeping. No low grade fever in past 24 hours. Marginally cooperative/disinterested in conversation She was alert and oriented. She said she's been sleeping well, affect is less irritable not hostile or rude today. She says her mood is is not depressed and denied thoughts of suicide. She denied thoughts of homicide, she denied hallucinations. She denied feeling paranoid, there were no delusions during the interview. No difficulties with thought organization, poor insight, poor judgment. Assessment Update: Armida is a 27-year-old single white female who presented to the emergency room after her mother reportedly found her in the garage trying to fashion a noose to hang self. The patient has extensive history of substance abuse and assaultive behaviors. However, this time around, her urine was clean. 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 She has been denying thoughts of suicide and has been asking for discharge since Monday. 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 if refusing PO Clonazepam 1.5 MG AT BEDTIME Duloxetine 60 MG DAILY Gabapentin 800 MG TID Charlo Carbonate 300 MG BID Quetiapine Fumarate 100 MG AT BEDTIME
[2018-04-01 12:25] VITALS: BP 137/71
[2018-04-01 19:39] VITALS: BP 143/75
[2018-04-02 08:24] VITALS: BP 117/62
[2018-04-02 09:51] LABS: LITHIUM 0.5 mmol/L (0.6-1.2)
--- NOTE | 2018-04-02 11:29 | SOCIAL WORKER PROG NOTE PSYCH ---
Social Work Progress Note Progress Note Prompted Armida to get up out of bed this morning to meet. She responded and got up. Yasmeen Diaz - critical [facility] hospital health worker and I met with Armida together. She looked fatigued. She shared that she tried to get into [facility] in [place] by doing a walk-in appt., but got frustrated with the process because she wasn't being seen and was being skipped over by other people that had appts. She reports that she had an appt. on 03/28, but ended up here. She stated that she attempted suicide by hanging and said she was cut down. She said the trigger for the event was her drinking and that when she drinks things don't go well. She reports being here over the past several days has been helpful to catch up on sleep. She reported not sleeping well over the few weeks prior to admission. Reported many stressors were also on her mind and she just couldn't take it anymore. She stated what she did was "scary." Denies current thoughts of self harm. Appeared tired today. She feels the meds she are on currently are sedating, but doesn't seem to mind that. She was in agreement to have a phone conference with her Mom and signed a release to do so. We called Ms. Moura. She said she was concerned with the attempt and her lack of structure. She wants a secured appt. with an IOP. I told her that we will attempt to secure an appt. as quick as we can with [facility], but there are no guarentees that we can get her in within a week. Explained that due to her Klonopin we can not refer to other options at this time, that may be faster. Armida has also gotten connected to her Mother's therapist. Armida doesn't seem to mind that she is seeing the same person as her Mother as I offered to give her a list of other therapists in the area. Mom will be contacting her therapist today to see when she will be seeing Armida. Armida seems to think she has an appt. there today at 4pm. Armida did not want me to contact her. She also reports she has an AUTOMOBILE BODY CUSTOMIZER she is seeing, but did not want to share this person's name with me. Mom was fine with picking Armida up today at 1pm. It sounds like she is also looking into other spiritual supports for her as well. [facility] was called. First available intake appt. was 04/24 1:30. Armida was informed of this and offered to have a sooner taper of her Klonopin to go to [facility] as a possible option, but she refused this option. She chose to keep that appt. and go to a walk in in the meantime.
[2018-04-02] MEDS ORDERED: CHLORPROMAZINE100 M2 PO (13:01)
--- NOTE | 2018-04-02 13:02 | DISCHARGE SUMMARY REPORT-PSYCH ---
Visit Information Visit Dates/Diagnosis' Admission Date: 03/27/18 Discharge Date: 04/02/18 Reason for Admission: 27-year-old female brought to the emergency room by ambulance. EMS was called by the patient's mother who found the patient in the garage with a rope around her neck. She was not hanging. Blood alcohol in the emergency room was 79. The patient had been making suicidal statements prior to presentation according to her mother. She had threatened to tie a rope around her neck in the garage. Prior to presentation the patient had left the house, angry. Her mother was having her hair done by a friend. She returned and according to her mother had apparently been drinking. BAL in the emergency room was 79. The patient told her mother that she was tired of struggling and left the house again. The patient's mother was nervous and went out after her when she found the patient with a rope around her neck in the garage. Psy Discharge Primary Diag: unspecified bipolar d/o by hx Psy Discharge Secondary Diag: Cluster B traits alcohol and stimulant ise Hospital Course Significant Lab Findings: Lab Itmann 0.6 mmol/L 03/26/18 2300 Itmann 0.5 mmol/L L 04/02/18 0730 Serum Alcohol 79.0 MG/DL 03/26/18 2300 Urine Test NEGATIVE 03/26/184 Course Consultations: The patient was seen by hospitalist for full review of systems and physical examination on admission. Allergies: Coded Allergies: nut - unspecified (Intermediate, RASH 02/28/18) haloperidol (From HALDOL) (PT STATES RASH AND DIFF BREATH 02/27/18) Hospital Course/TX Response: The patient was treated by Dr. Mesa. Preadmission medications were continued. She was commenced on chlorpromazine every 4 hours as needed for agitation. Clonazepam was reduced to 1.5 mg p.o. at bedtime. The patient was seen by me on the day of discharge. She was not suicidal or homicidal and there were no psychotic symptoms. The patient was strongly encouraged to attend the intensive outpatient program at [facility]. This would have involved tapering her clonazepam over 3 weeks. The patient declined and stated that if we did taper her clonazepam she would continue to take the previous dose at home. The patient receives her medications from an DRY SANDER but apparently did not disclose who this was during her admission. She refused admission first contact her. The patient ultimately agreed to attend [facility]. She has an appointment for April 24 but was strongly encouraged to attend early for a walk-in appointment as soon as possible. Family meeting was held by the unit delinquency prevention social worker with the patient and her mother. Her mother was in support of this treatment plan. Please see delinquency prevention social worker notes for details. The patient preadmissions medications were continued. She reports she had an adequate supply of these medications at home. At discharge she was given a prescription for procarbazine 50 mg up to 3 times a day if needed for anxiety or agitation. Clonazepam was also reduced to 1.5 mg. No prescription for clonazepam was given. Discharge HBIPS - Tobacco Use Treatment Offered Post DC Medications Offered: Script Given-See Med List Post DC Tobacco Treatment Plan: Refused Tobacco Tx Pgm - EtOH/Drug Use D/O Treatment Offered Post DC Medications Offered: Ref Med EtOH/Drug Use D/O Post DC EtOH/SubAbuse TX Plan: Other SubAbuse/Dual Pgm Program Appt Date: 04/24/18 Metabolic Screening - Screen if on a Neuroleptic Medication - Metabolic screening should include: - Blood Pressure, BMI, Glucose or Hgb A1c, & a - Lipid profile from within the past 365 days. Metabolic Screening () Not Applicable, patient not on a neuroleptic. OR () Patient on a neuroleptic(s) . Enter below results for Hemoglobin A1C, and lipid panel if obtained during the last 365 days. BMI: 34.700 February 27, 2018: Blood Pressure: 117/62 Laboratory Results From [facility] E[facility] (If applicable): February 27, 2018: Cholesterol 166, triglycerides 273, HDL 34, LDL 78 , HbA1c 8.7 Discharge Instructions General Discharge Information Multiple Neuroleptics: () Not Applicable OR Document below three failed attempts at monotherapy, or a plan to taper to monotherapy, or augmentation of Clozapine. () Discharge Diet Diabetic Discharge Activity As Tolerated DC Disposition: The patient is being discharged home to live with her mother. As mentioned she declined referral to IOP. Referrals Ordered Referrals [facility] 04/24/[address] [place] [address] [place] [address] [facility] IOP for mental health and substance use treatment Intake 04/24/18 1:30pm Walk In evals: Mon, , 12:30-3pm First come first serve without guarentee of being seen [address] [place] [address] Provider Referral 04/11/18 For Groups: Outpatient Psychiatry [facility] Smoking Cessation Group 04/11/18 at 4pm [address] [place] [address] Prescriptions Continue taking these medications: Clonazepam (Clonazepam) 1 MG TABLET 1 Milligram 2100 Comments: Last Taken:TO START TONIGHT Time:RECEIVED 1.5MG ON 04/01/18 AT 8PM Gabapentin (Gabapentin) 400 MG CAPSULE 2 Capsule ORAL THREE TIMES DAILY Comments: Last Taken:04/02/18 Time:8:30AM Quetiapine Fumarate (Seroquel) 100 MG TABLET 1 Tablet ORAL AT BEDTIME Comments: Last Taken:04/01/18 Time:8PM Duloxetine HCl (Cymbalta) 60 MG CAPSULE. Comments: Last Taken:04/02/18 Time:8:30AM Metformin HCl (Metformin HCl) 500 MG TABLET 1 Tablet ORAL 7:30AM & 4:30PM Comments: Last Taken:04/02/18 Time:8:30AM Itmann Carbonate (Itmann Carbonate) 300 MG CAPSULE 1 Capsule ORAL TWICE DAILY Comments: Last Taken:04/02/18 Time:8:30AM Insulin Detemir (Levemir) 100 UNIT/ML VIAL 12 Units SC TWICE DAILY Comments: Last Taken:04/02/18 Time:8:30AM Start taking the following new medications: Chlorpromazine HCl (Chlorpromazine HCl) 100 MG TABLET 100 Milligram ORAL Q8H as needed for AGITATION Qty = 30 No Refills Comments: Last Taken:04/01/18 Time:9PM Studies Pending at Discharge None Copies To: .
--- NOTE | 2018-04-02 14:26 | SOCIAL WORKER PROG NOTE PSYCH ---
Social Work Progress Note Faxed Referral(s) Referred To: [facility] Transition of Care Documents sent: Health Summary Faxed to: [facility] Fax #: [phone] Faxed by: Yasmeen Diaz Date faxed: 04/02/18 Time Faxed: [phone]
--- NOTE | 2018-04-02 17:26 | SOCIAL WORKER PROG NOTE PSYCH ---
Social Work Progress Note Progress Note The services requested require additional review. You will be contacted regarding the status of this request if further information is needed. An authorization decision will be made within the required timeframes and details of that decision may be found under the member's authorization history. Member Name Member ID Member Subscriber Name Subscriber ID MOLLY SANCHES [id number] 1990 MOLLY SANCHES [id number] Pended Authorization # Client Authorization # Type of Request [id number] CONCURRENT Date of Admission/ Start of Services Requested From Submission Date 03/27/2018 03/31/2018 04/02/2018 Level of Service Type of Service Level of Care Type of Care INPATIENT/HLOC Mental Health Inpatient Inpatient [facility] - Inpatient Hospital Reason Code P76 Provider Name & Address Provider ID Provider Alternate ID NPI # for Authorization SARAH GARCIA [id number] [address] [place] [id number]
== END 2018-04-02 13:40 | DRG 753 ==
LOC: ERH 21:53 → CP SOUTH 03-27 10:26 → ERHI 03-27 10:26 → CP SOUTH 03-27 10:46 → ENTRNSPT 03-27 10:48 → EDTRNSPTSTS 03-27 11:26 → EDTRNSPT 03-27 11:26 → CP SOUTH 03-27 11:31 → CMPTRNSPT 03-27 11:46 → CP SOUTH 03-27 12:23
PROVIDERS: Physician Assistant; Psychiatry & Neurology Psychiatry
DX: F31.9 Bipolar disorder, unspecified (principal); F10.10 Alcohol abuse, uncomplicated; F15.90 Other stimulant use, unspecified, uncomplicated; F60.89 Other specific personality disorders
CPT/HCPCS: 36415; 80307; 81025; 96372; G0480; J0515; J1815